=== PATIENT | male | born 1970 | race Caucasian/White ===

== ENCOUNTER 2023-11-18 09:47 | Outpatient (AMB) | payer OTHER, SELFPAY ==
--- NOTE | 2023-11-18 09:53 | A.OFFVIS_ITS ---
Vital Signs 3 11/18/23 09:54 Height 5 ft Weight 184 lb 1.376 oz BMI 35.9 BP 110/66 Blood Pressure Location Lt brachial Position Sitting Pulse 64 Pulse Source Pulse Oximeter Intake Visit Reasons: Hyperthyroid Intake Note: Patient present today Hyperthyroid office visit. 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 Otherwise medical history significant for hypertension, hyperlipidemia, type 2 diabetes mellitus with long-term insulin use. Labs from 10/28/2023 showed TSH of 0.14 UU per mL. No free T4 done. Normal AST and ALT as well as alkaline phosphatase noted. Thyroid uptake and scan done at [facility] on 11/05/2023 showed normal uptake at 24:00 hours of 17.6%. Uptake is homogeneous. Denies any history of thyroid disease in the past. No thyroid medicine in the past. No recent contrast exposure, no preceding viral illness. Heart disease: none Fractures:none Patient currently denies heat or cold intolerance, diarrhea or constipation, hair loss, palpitation, anxiety, weight changes, mood changes, changes in appearance of eyes or vision changes, tremors, increased diaphoresis or dry skin. ? Sometimes report low energy. Patient denies any difficulty swallowing, pain on swallowing or voice changes or difficulty breathing. Patient denies any history of childhood neck radiation. Denies having ever used lithium, amiodarone or biotin supplements. Patient denies any family history of thyroid cancer or thyroid disease. Never smoker No alcohol No drug use Review of systems Constitutional: no fevers, chills or weight loss HEENT: no changes in vision Cardiac: No chest pain, discomfort or palpitations. Pulmonary: No SOB GI:No abdominal pain, no nausea or vomiting, no anorexia, no blood in stool : no burning micturition, dysuria or increase in urinary frequency Neurologic: No dizziness, no weakness in extremities Physical exam General: sitting comfortably in no acute distress HEENT: normocephalic/atraumatic, moist oral mucosa, no lid lag Neck: supple, symmetrical, no thyromegaly , no dorsocervical or supraclavicular fat pads Cardiac: normal heart sounds Pulm: normal breath sounds B/L, no added breath sounds Abd: not distended, no tenderness Extremities: no edema, no signs of myxedema no tremors, no tremors Neuro: AAO x3, Speech: normal, no facial droop, moving all 4 extremities [facility] Medical History (Updated 11/18/23 @ 10:20 by Nell Anthony MD) Low TSH level Family History Mother No problems noted. Father No problems noted. Social History Alcohol intake: never Patient Tobacco Use Status: Never used Tobacco Physical Exam Vital Signs: Last Vital Signs Pulse 64 11/18/23 09:54 BP 110/66 11/18/23 09:54 BMI result Body Mass Index 35.9 Results Reviewed Results Reviewed: Assessment & Plan Assessment & Plan (1) Low TSH level: Code(s): R79.89 - Other specified abnormal findings of blood chemistry Category: Medical Plan: Patient with history of low TSH level concerning for subclinical hyperthyroidism. However no free T4 available to review. He does not have any significant symptoms of hyperthyroidism or hypothyroidism. Most likely this is going to be subclinical however I will order thyroid function panel today. We will also order TSI levels to see if he has underlying autoimmune thyroid disease. Primary care physician did a thyroid uptake and scan October 2023 and I reviewed the report, he has normal thyroid uptake with homogeneous distribution not concerning for any toxic nodular goiter. I explained to him that if he has overt hyperthyroidism then we will bring him back in for sooner appointment to discuss further steps in treatment as well as next steps on investigation. However if this is subclinical hyperthyroidism, then he does not meet treatment criteria which is TSH level less than 0.1, age greater than 65, history of osteoporosis or heart disease. He does not have any of these plus he has it does not have any significant symptoms of hyperthyroidism. Plan: -ordered TSH, free T4, total T3, TSI and TPO antibodies -if he has subclinical hyperthyroidism based on these now, meeting criteria for treatment, we will follow up in 6 months with repeat blood work, however if he does have significant overt hyperthyroidism we will bring him back sooner to discuss further steps. Also counseled him about symptoms of hyperthyroidism and when to return sooner. Patient verbalized understanding and agreed with the plan. Plan I spent 30 minutes in reviewing the record, seeing the patient and documenting in the medical record. Orders: Orders 2 Thyroid Stimulating Hormone Today R79.89 - Other specified abnormal findings of blood chemistry Triiodothyronine T3 Total Today R79.89 - Other specified abnormal findings of blood chemistry Thyroid Stimulating Immunoglob Today R79.89 - Other specified abnormal findings of blood chemistry Free T4 (Free Thyroxine) Today R79.89 - Other specified abnormal findings of blood chemistry Thyroid Peroxidase Antibodies Today R79.89 - Other specified abnormal findings of blood chemistry Patient Instructions: Do blood work Coding Level of Care Code New Pt Level 4 (61559) Diagnoses Low TSH level R79.89 Time Spent (min) 30
[2023-11-18 09:54] VITALS: BP 110/66; PULSE 64; BMI 35.9
== END 2023-11-18 11:01 | disposition home or self-care (01) ==
PROVIDERS: PCP Internal Medicine; Visit Provider Student in an Organized Health Care Education/Training Program
DX: R79.89 Other specified abnormal findings of blood chemistry (principal)
CPT/HCPCS: 99204

== ENCOUNTER → 2023-11-18 09:47 | Outpatient (BNVA) | payer OTHER, MEDICAID, SELFPAY | PROVIDERS: PCP Internal Medicine; Visit Provider Student in an Organized Health Care Education/Training Program ==

== ENCOUNTER 2023-11-18 10:36 | Outpatient (REF) | payer OTHER, SELFPAY ==
[2023-11-18 12:10] LABS: Free T4 (Free Thyroxine) 1.01 ng/dL (0.71-1.85); Thyroid Stimulating Hormone 0.29 uIU/mL (0.32-4.0)
[2023-11-19 17:08] LABS: Triiodothyronine T3 Total 92 ng/dL (76-181)
[2023-11-24 15:23] LABS: Thyroid Stimulating Immunoglob <89 % baseline (<140)
== END 2023-11-18 10:37 | disposition home or self-care (01) ==
LOC: HO.10HDL 10:36
PROVIDERS: Visit Provider Student in an Organized Health Care Education/Training Program
DX: R94.6 Abnormal results of thyroid function studies (principal)
CPT/HCPCS: 36415; 84439; 84443; 84445; 84480; 99202